=== PATIENT | female | born 1970 | race Caucasian/White ===

== ENCOUNTER → 2017-05-21 | Outpatient (CLI) | payer OTHER ==
[~2017-05-21] MED LIST: BUPR300T4 PO; CALC300T4 PO; CBD TP; ESTR0.5T PO; GABA300C10 PO; HYDR-3245 PO; HYDR15SO3 PO; LORA1TAB PO; OMEP20TA62 PO; ONDA8TAB9 PO; Omega 3 PO; PROG100C2 PO; THC TP; THYR90TA PO; VENL150C6 PO
[2017-05-21 12:36] LABS: BLOOD UREA NITROGEN 9 mg/dL (7-18)
[2017-05-21 12:53] LABS: HEMATOCRIT 45.3 % (34.6-47.8); HEMOGLOBIN 15.4 g/dL (11.7-16.4); WHITE BLOOD COUNT 8.2 x10^3/uL (3.4-10)
[2017-05-21 13:05] LABS: ASPARTATE AMINO TRANSFERASE 21 U/L (15-37); FERRITIN 96.6 ng/mL (8-252); TOTAL IRON BINDING CAPACITY 415 mcg/dL (250-450); TRANSFERRIN 334 mg/dL (200-360)
== END | disposition home or self-care (01) ==
LOC: STAR 11:02
PROVIDERS: ATTEND Surgery
DX: Z01.818 Encounter for other preprocedural examination (principal); K21.9 Gastro-esophageal reflux disease without esophagitis; E66.01 Morbid (severe) obesity due to excess calories; R06.02 Shortness of breath; R06.83 Snoring; F41.9 Anxiety disorder, unspecified; R53.83 Other fatigue; F32.9 Major depressive disorder, single episode, unspecified; M54.9 Dorsalgia, unspecified; M25.50 Pain in unspecified joint
CPT/HCPCS: 36415; 71020; 80053; 80061; 82306; 82607; 82728; 82746; 83540; 83550; 83970; 84134; 84425; 84466; 85025; 93005

== ENCOUNTER 2017-05-28 11:01 | Inpatient (IN) | payer OTHER ==
[~2017-05-28] VITALS: Ht 165.1 cm; Wt 106.7 kg
[~2017-05-28 11:01] MED LIST changes: +BUPIVACAINE/PF 0.5% ONE; +CEFAZOLIN 1,000 MG ONE; +DEXAMETHASONE 4 MG/ML, 1ML ONE; +FENTANYL PF 100 MCG/2ML ONE; +MIDAZOLAM 1 MG/ML, 2ML ONE; +ONDANSETRON 2MG/ML, 2ML ONE; +PROPOFOL 10 MG/ML, 20ML ONE; +ROCURONIUM 10 MG/ML,10ML ONE; +SODIUM CHLORIDE 0.9% PF 10ML ONE
[2017-05-28] MEDS ORDERED: LACTATED RINGERS 1,000 ML IV SCH ×2 (11:13→11:29)
[2017-05-28 11:30] VITALS: BP 118/83
[2017-05-28] MEDS ORDERED: LIDOCAINE 1%, 2ML SQ PRN (11:30)
[2017-05-28] MEDS ORDERED: PHENYLEPHRINE 10 MG/ML ONE (13:42)
[2017-05-28] MEDS ORDERED: NEOSTIGMINE 1 MG/ML, 10ML ONE (13:53)
[2017-05-28] MEDS ORDERED: GLYCOPYRROLATE 0.4 MG/2 ML, 2ML ONE (13:53)
[2017-05-28] MEDS ORDERED: PROMETHAZINE 25 MG/ML, 1ML IV PRN (14:00)
[2017-05-28] MEDS ORDERED: hydrALAzine 20 MG/ML, 1ML IV PRN (14:00)
[2017-05-28] MEDS ORDERED: LABETALOL 5MG/ML, 20ML IV PRN (14:00)
[2017-05-28] MEDS ORDERED: MEPERIDINE/PF 25MG/0.5ML IVPush PRN (14:00)
[2017-05-28] MEDS ORDERED: OXYcodone 5 MG/5 ML ORAL.SOL UDC PO PRN (14:00)
[2017-05-28] MEDS ORDERED: ACETAMINOPHEN 325 MG TABLET PO PRN (14:00)
[2017-05-28] MEDS ORDERED: ONDANSETRON 2MG/ML, 2ML IVPush PRN (14:00)
[2017-05-28] MEDS ORDERED: BUPIVACAINE/PF-EPI 0.5% 1:200K INFIL ONE (14:12)
[2017-05-28] MEDS ORDERED: FENTANYL PF 100 MCG/2ML ONE ×2 (15:31→16:05)
[2017-05-28] MEDS: FENTANYL PF 100 MCG/2ML IV PRN ×3 (15:33→16:06)
[2017-05-28] MEDS ORDERED: HYDROmorphone 2 MG/ML, 1ML ONE (15:37)
[2017-05-28] MEDS ORDERED: ACETAMINOPHEN 650 MG/20.3 ML UDC ONE (15:40)
[2017-05-28] MEDS ORDERED: OXYcodone 5 MG/5 ML ORAL.SOL UDC ONE (15:41)
[2017-05-28] MEDS: HYDROmorphone 1 MG/ML, 1ML IV PRN ×4 (15:44→16:19)
[2017-05-28] MEDS ORDERED: LACTATED RINGERS 500 ML IVBOLUS PRN (18:00)
[2017-05-28] MEDS ORDERED: PHENOL THROAT SPRAY BOTTLE MM PRN (18:00)
[2017-05-28] MEDS ORDERED: DIPHENHYDRAMINE 50 MG/ML, 1ML IV PRN (18:00)
[2017-05-28] MEDS ORDERED: DIPHENHYDRAMINE 25 MG CAPSULE PO PRN (18:00)
[2017-05-28 19:56] VITALS: BP 129/82
[2017-05-28] MEDS: GABAPENTIN 300 MG CAPSULE PO SCH (20:10)
[2017-05-28] MEDS: POTASSIUM CHLORIDE 20 MEQ in LACTATED RINGERS 1,000 ML IV SCH (23:48)
[2017-05-29 00:22] VITALS: BP 128/86
[2017-05-29 03:11] VITALS: BP 131/87
[2017-05-29] MEDS: ONDANSETRON 2MG/ML, 2ML IV PRN ×3 (05:32→16:46)
[2017-05-29 05:43] LABS: MEAN CORPUSCULAR HEMOGLOBIN 30.3 pg (27.0-34.8); MEAN CORPUSCULAR HGB CONC 33.7 g/dL (32.4-35.8); MEAN CORPUSCULAR VOLUME 90.1 fL (80-100); MEAN PLATELET VOLUME 8.4 fL (7.4-10.4); PLATELET COUNT 297 x10^3/uL (130-400); RED BLOOD COUNT 4.56 x10^6/uL (3.82-5.3); RED CELL DISTRIBUTION WIDTH 13.2 % (9.6-15.2)
[2017-05-29 05:50] LABS: ALBUMIN 3.6 g/dL (3.4-5.0); ANION GAP 5 mmol/L (5-15); CALCIUM 9.2 mg/dL (8.5-10.1); CHLORIDE 105 mmol/L (98-107)
[2017-05-29] MEDS: HYDROcodone/APAP 7.5-325MG/15ML UDC PO PRN ×4 (05:51→15:10)
[2017-05-29 05:53] LABS: CREATININE 0.81 mg/dL (0.55-1.02)
[2017-05-29] MEDS ORDERED: THYROID 30 MG TABLET PO SCH (06:00)
[2017-05-29] MEDS ORDERED: ENOXAPARIN 30 MG/0.3 ML SQ SCH (06:00)
[2017-05-29 06:25] LABS: BASOPHILS # (AUTO) 0.07 x10^3/uL (0-0.1); BASOPHILS % (AUTO) 1 % (0-1); EOSINOPHILS % (AUTO) 0 % (1-7); LYMPHOCYTES # (AUTO) 0.99 x10^3/uL (1-3.4); LYMPHOCYTES % (AUTO) 7 % (22-44); MD SCAN; MONOCYTES # (AUTO) 0.53 x10^3/uL (0.2-0.8); MONOCYTES % (AUTO) 4 % (2-9); NEUTROPHILS # (AUTO) 12.85 x10^3/uL (1.8-6.8); NEUTROPHILS % (AUTO) 89 % (42-75)
[2017-05-29] MEDS: POTASSIUM CHLORIDE 20 MEQ in LACTATED RINGERS 1,000 ML IV SCH ×2 (08:45→15:05)
[2017-05-29] MEDS: GABAPENTIN 300 MG CAPSULE PO SCH ×2 (08:45→16:46)
[2017-05-29 10:58] VITALS: BP 141/86
== END 2017-05-29 17:43 | disposition home or self-care (01) | DRG 619 ==
LOC: ORIP 11:01 → 4NOR 17:23
PROVIDERS: ADMIT Surgery; ATTEND Surgery
PROC: 0BQT4ZZ Repair Diaphragm, Percutaneous Endoscopic Approach (ICD-10-PCS; 2017-05-28)
PROC: 0DB64Z3 Excision of Stomach, Percutaneous Endoscopic Approach, Vertical (ICD-10-PCS; principal; 2017-05-28 13:00)
DX: E66.01 Morbid (severe) obesity due to excess calories (principal); R65.11 Systemic inflammatory response syndrome (SIRS) of non-infectious origin with acute organ dysfunction; K76.0 Fatty (change of) liver, not elsewhere classified; F32.9 Major depressive disorder, single episode, unspecified; F41.9 Anxiety disorder, unspecified; K21.9 Gastro-esophageal reflux disease without esophagitis; K44.9 Diaphragmatic hernia without obstruction or gangrene; Z68.39 Body mass index [BMI] 39.0-39.9, adult
CPT/HCPCS: 36415; 80048; 82040; 85025; 88305; J0690; J1100; J1170; J2250; J2270; J2405; J2704; J2710; J3010; J3480; J3490; C1760; J2370; J7120